=== PATIENT | female | born 2005 | race Caucasian/White ===

== ENCOUNTER 2025-08-02 08:07 | Outpatient (CLI) | payer BC ==
[2025-08-02 09:31] LABS: Hematocrit 40.2 % (34.9-44.5); Hemoglobin 13.4 g/dL (12.0-15.5); Mean Corpuscular Hemoglobin 31.0 pg (27.0-33.0); Mean Corpuscular Volume 93.1 fL (81.6-98.3); Platelet Count 334 10x3/uL (150-450); Red Blood Cell (RBC) Count 4.32 10x6/uL (3.90-5.03); White Blood Cell (WBC) Count 5.54 10x3/uL (3.5-10.5)
[2025-08-02 09:46] LABS: Anion Gap 12 mmol/L (10-20); BUN (Urea Nitrogen) 13 mg/dL (7.0-18.7); Calc. Creatinine Clearance 0 mL/min (70-130); Calcium 10.3 mg/dL (7.8-10.44); Carbon Dioxide 26 mmol/L (22-29); Chloride 105 mmol/L (98-107); Glucose 94 mg/dL (70-105); Potassium 4.2 mmol/L (3.5-5.1); Sodium 139 mmol/L (136-145)
[2025-08-02 10:06] LABS: BHCG - Serum Negative (NEGATIVE); Pregs Control Bar Appear? YES (CONTROL BAR)
[2025-08-02 10:07] LABS: Pregs Control Background? CLEAR/WHITE (CLR/WHITE)
== END 2025-08-02 08:08 | disposition home or self-care (01) ==
LOC: CSHLAB 08:07
PROVIDERS: ATTEND Obstetrics & Gynecology
DX: Z01.818 Encounter for other preprocedural examination (principal); N90.60 Unspecified hypertrophy of vulva
CPT/HCPCS: 80048; 84703; 85027; 93005; 93010